=== PATIENT | male | born 1980 | race Caucasian/White ===

== ENCOUNTER 2016-09-15 15:36 | Emergency (ER) | payer OTHER ==
[~2016-09-15] VITALS: Ht 167.6 cm; Wt 67.6 kg
[2016-09-15 18:30] LABS: CALCIUM 9.2 mg/dL (8.5-10.1); CARBON DIOXIDE 28.6 mmol/L (21-32); CHLORIDE SERUM 106 mmol/L (98-107); CREATININE SERUM 1.1 mg/dL (0.7-1.3); GFR1 > 60 mL/min; GLUCOSE SERUM 92 mg/dL (74-106); POTASSIUM SERUM 3.9 mmol/L (3.5-5.1); SODIUM SERUM 145 mmol/L (136-145)
[2016-09-15 18:35] LABS: ALBUMIN 4.1 g/dL (3.4-5.0); ALKALINE PHOSPHATASE 66 U/L (46-116); ALT/SGPT 55 U/L (16-63); AST/SGOT 20 U/L (15-37); BILIRUBIN TOTAL 0.4 mg/dL (0.20-1.00); LIPASE 264 IU/L (73-393); TOTAL PROTEIN, SERUM 7.6 g/dL (6.4-8.2)
[2016-09-15 18:41] LABS: BASOPHIL % 0.5 % (0-2); PLATELET COUNT 209 x10^3mcL (130-400); RED CELL DISTRIBUTION WIDTH 13.9 % (11.5-14.5)
[2016-09-15 20:08] VITALS: BP 122/78
== END 2016-09-15 20:08 | disposition home or self-care (01) ==
LOC: ED 15:36
PROVIDERS: Psychiatry & Neurology Psychiatry
DX: I86.1 Scrotal varices (principal); R10.2 Pelvic and perineal pain; F20.9 Schizophrenia, unspecified; F31.9 Bipolar disorder, unspecified

== ENCOUNTER 2020-05-16 21:57 | Emergency (ER) | payer OTHER ==
[~2020-05-16] VITALS: Ht 170.2 cm; Wt 75.3 kg
[2020-05-16 22:02] VITALS: Ht 170.2 cm; Wt 75.3 kg
[2020-05-17 00:14] VITALS: BP 125/82
== END 2020-05-17 00:14 | disposition home or self-care (01) ==
LOC: ED 21:57
DX: F20.9 Schizophrenia, unspecified (principal); R10.9 Unspecified abdominal pain

== ENCOUNTER 2020-05-17 23:46 | Emergency (ER) | payer OTHER, SELFPAY ==
[~2020-05-17] VITALS: Ht 167.6 cm; Wt 63.5 kg
[2020-05-17 23:47] VITALS: BP 132/94; Ht 167.6 cm; Wt 63.5 kg
[2020-05-19] MEDS ORDERED: NAPROSYN500 MG PO (14:47)
== END 2020-05-18 03:01 | disposition home or self-care (01) ==
LOC: ED 23:46
DX: R51.9 Headache, unspecified (principal); M79.10 Myalgia, unspecified site; R10.9 Unspecified abdominal pain
CPT/HCPCS: J1885; U0003

== ENCOUNTER 2020-05-19 09:27 | Emergency (ER) | payer OTHER ==
[~2020-05-19] VITALS: Ht 170.2 cm; Wt 63.5 kg
[2020-05-19 09:34] VITALS: Ht 170.2 cm; Wt 63.5 kg
[2020-05-19 10:45] LABS: BASOPHIL % 0.8 % (0.2-1.5); PLATELET COUNT 251 x10^3mcL (152-348); RED CELL DISTRIBUTION WIDTH 13.8 % (12.1-16.2)
[2020-05-19 11:04] LABS: CALCIUM 9.2 mg/dL (8.5-10.1); CARBON DIOXIDE 29.4 mmol/L (21-32); CHLORIDE SERUM 102 mmol/L (98-107); CREATININE SERUM 0.9 mg/dL (0.7-1.3); GFR1 > 60 mL/min; GLUCOSE SERUM 100 mg/dL (74-106); POTASSIUM SERUM 4.4 mmol/L (3.5-5.1); SODIUM SERUM 138 mmol/L (136-145)
[2020-05-19 11:08] LABS: ALBUMIN 3.9 g/dL (3.4-5.0); ALKALINE PHOSPHATASE 73 U/L (46-116); ALT/SGPT 65 U/L (16-63); AST/SGOT 86 U/L (15-37); BILIRUBIN TOTAL 0.55 mg/dL (0.20-1.00)
[2020-05-19 11:33] VITALS: BP 127/88
[2020-05-19 13:14] LABS: AMPHETAMINE QUAL UR NONE DETECTED (See below)
[2020-05-19] MEDS ORDERED: NAPROSYN500 MG PO (14:47)
== END 2020-05-19 15:20 | disposition home or self-care (01) ==
LOC: ED 09:27
PROVIDERS: Specialist
DX: M54.2 Cervicalgia (principal)
CPT/HCPCS: J1885; J7030; Q9967

== ENCOUNTER 2020-05-22 18:32 | Emergency (ER) | payer OTHER ==
[~2020-05-22] VITALS: Ht 170.2 cm; Wt 68.0 kg
[~2020-05-22 18:32] MED LIST: NAPROSYN500 MG PO
[2020-05-22 18:34] VITALS: Ht 170.2 cm; Wt 68.0 kg
[2020-05-22 21:49] VITALS: BP 135/84
== END 2020-05-22 21:49 | disposition home or self-care (01) ==
LOC: ED 18:32
DX: N45.1 Epididymitis (principal)

== ENCOUNTER 2020-05-27 23:31 | Emergency (ER) | payer OTHER ==
[~2020-05-27] VITALS: Ht 167.6 cm; Wt 75.7 kg
[2020-05-27 23:48] VITALS: BP 140/83; Ht 167.6 cm; Wt 75.7 kg
== END 2020-05-28 00:36 | disposition home or self-care (01) ==
LOC: ED 23:31
DX: F41.9 Anxiety disorder, unspecified (principal); F51.04 Psychophysiologic insomnia